=== PATIENT | female | born 1980 | race Hispanic/Latino ===

== ENCOUNTER 2018-09-17 06:28 | Day surgery (SDC) | payer BC ==
[2018-09-15 10:45] LABS: Urine Appearance CLEAR; Urine Bilirubin NEGATIVE (NEG); Urine Blood NEGATIVE (NEG); Urine Color YELLOW; Urine Glucose NEGATIVE (NEG); Urine Protein NEGATIVE (NEG); Urine Specific Gravity >=1.030 (1.005-1.030); Urine Urobilinogen 0.2 mg/dL (0.2-1.0); Urine pH 5.5 (5.0-7.0)
[2018-09-15 10:46] LABS: Absolute Lymphocytes (CBC) 1.9 K/uL (0.7-4.9); Absolute Monocytes 0.4 K/uL (0.1-1.3); Absolute Neutrophil 3.4 K/uL (1.8-8.0); Basophils % 0.5 % (0-1.3); Eosinophils % 6.7 % (0-4.4); Hematocrit 38.8 % (36.0-45.0); Lymphocytes % 31.6 % (15.3-44.8); MPV 8.7 fL (7.6-11.3); Monocytes % 5.7 % (3.3-12.3); RBC Red Blood Cell Count 4.32 M/uL (3.86-4.86)
[2018-09-15 10:52] LABS: Urine Microscopic Reflex NO UMIC
--- OUTSIDE RECORDS SUMMARY | 2018-09-17 06:33 | XMS REPORT ---
:1980 [facility] Address [address] [place] [address] Dr. Deluna [address] [place] [id number] Care Team Providers Name Role Phone Unavailable Unavailable Unavailable Problems This patient has no known problems. Allergies, Adverse Reactions, Alerts This patient has no known allergies or adverse reactions. Medications This patient has no known medications.
[2018-09-17] MEDS ORDERED: Ringers Lactate 1,000 ML IV ONE (07:03)
[2018-09-17] MEDS ORDERED: PROPOFOL 200 MG/20 ML VIAL IV ONE (07:12)
[2018-09-17] MEDS ORDERED: ROCURONIUM 50 MG/5 ML VIAL IV ONE (07:13)
[2018-09-17] MEDS ORDERED: GLYCOPYRROLATE 0.2 MG/ML SYR ONE (07:15)
[2018-09-17] MEDS ORDERED: LIDOCAINE 2% MPF 5 ML VIAL ONE (07:17)
[2018-09-17] MEDS ORDERED: DEXAMETHASONE 10 MG/ML VIAL ONE (07:17)
[2018-09-17] MEDS ORDERED: MIDAZOLAM HCL 2 MG/2 ML INJ ONE ×4 (07:18→07:43)
[2018-09-17] MEDS ORDERED: FENTANYL CITR 250 MCG/5 ML ONE (07:18)
[2018-09-17] MEDS ORDERED: ONDANSETRON 4 MG/2 ML VIAL ONE ×2 (07:21→08:47)
[2018-09-17] MEDS ORDERED: LIDOCAINE 1% MPF 2 ML AMPULE ONE (07:21)
[2018-09-17] MEDS ORDERED: NEOSTIGMINE 1 MG/ML -10 ML VIAL ONE (07:21)
[2018-09-17] MEDS: Ringers Lactate 1,000 ML IV ONE ×2 (08:05→08:10)
[2018-09-17] MEDS ORDERED: VASOPRESSIN 20 UNIT/ML VIAL ONE (08:44)
[2018-09-17] MEDS ORDERED: NS 0.9% VIAL 20 ML ONE (08:44)
[2018-09-17] MEDS ORDERED: KETOROLAC 30 MG/ML INJ ONE (09:31)
[2018-09-17] MEDS ORDERED: IBUPROFEN 200 MG TAB PO ONE (10:53)
[2018-09-17 13:52] VITALS: BP 106/59; TEMP 97.3; O2SAT 100
--- NOTE | 2018-09-17 17:22 | OP ---
Date of Procedure: 09/17/2018 Surgeon: Hannah Alicea MD Stock Replenisher: Carlota Eng. Preoperative Diagnoses: Desires sterilization, endometriosis, irregular periods, history of menorrha milagros. Postoperative Diagnoses: Desires sterilization, endometriosis, irregular periods, history of menorrh agia, and leiomyomata. Procedures Performed: 1.Diagnostic laparoscopy, endometriosis excision. 2.Bilateral salpingectomy. 3.Myomectomy x3 with repair of the myometrium. Anesthesia: General endotracheal. Estimated Blood Loss: 50. Specimens: Left uterosacral ligament endometriosis, left posterior broad ligament endometriosis, violet ateral tubes and leiomyomata x3. Complications: None. Drains: None. Condition: Stable. Findings: Two intramural fibroid with subserosal extension in the left anterior wall of the uterus, 1 subserosal fibroid with an indentation into the myometrium. Given the patient's history of heavy p eriods, plan was made to remove them. Endometriosis removed in the past. All the areas of excision appeared to be unremarkable excepting a t the distal left uterosacral where there was endometriotic tissue suspected and in the left posterio r broad ligament closer to the ovary. These 2 areas were excised with a monopolar tip, bilateral marcia pingectomy with an EnSeal device. Indications For Procedure: The patient is a 38-year-old with previous mental health problems includi ng bipolar disorder with episodes of psychosis and major depression, currently in remission. However , the patient has contemplated over her future fertility and desired complete sterilization, so we di scussed a bilateral salpingectomy, and she was consented. She also has history of menorrhagia. She is on oral contraceptive pills. Given her age and the risk, and the liver toxicity that can come fro m her medications for her mental health as well as the added oral contraceptives, it was decided that she should come off the contraceptives. History of menorrhagia prior to the use and so if there wer e any other problems that were detected that could be contributing to this, I consented the patient f or treatment of this. Procedure In Detail: After informed consent was verified, the patient was taken back to OR, placed i n a supine fashion on the operating table. After general anesthesia was given, she was placed in benita marcia lithotomy position. No antibiotics were given for this case. Pelvic exam was performed. Uterus was found to be anteflexed about 6 weeks in size. No adnexal masses. Slight nodularity in the left uterosacral ligament. Abdomen, vulva, vagina, and perineum were prepped and draped in a sterile fashion. Koch was placed to drain the bladder. Diagnostic VCare introduced into the uterine cavity. This area was then drape d. A 1 cm infraumbilical incision was made with a scalpel. Using the open laparoscopy technique, fascia was incised, tagged with 0 Vicryl sutures. Peritoneum entered bluntly, S retractors placed, and Has son introduced. Site of entry was checked and was unremarkable. Two 5 mm ports were placed in the s uprapubic and left lower quadrant under direct vision without any problems. Then, after visualizing the entire anterior and posterior pelvic, peritoneum, broad ligaments, the ovaries, tubes endometrios is was found in 2 locations as discussed above, the left distal uterosacral and the left lateral post erior broad ligament. The plan was to excise these with the monopolar Storz needle. This was taken. Dissection was performed circumferentially to remove the entire scar as well as the satellite endom etriotic lesions. Once both of these were dissected and removed, they were handed off for permanent pathology. Bilateral salpingectomy was performed with the EnSeal device and both of the tubes were removed throu gh the suprapubic trocar. A 20 units of vasopressin was diluted in 20 cc of normal saline. About 8 cc was injected at the loca tion of each fibroid at the base. Once the right plane was reached with a 22-gauge long spinal needl e, this was injected. There was appropriate blanching. Then, the monopolar Storz needle was used to make an incision over the serosa. Once the myoma was reached, the myoma was grasped with the tip of Lara and monopolar was used to excise it from its base. All 3 incisions were made through the my ometrium and the myomata removed. Then the bases were repaired with the help of 2-0 Monocryl on an S H needle in a buried [id number] fashion in all 3 locations. Intracorporeal knots were placed on the 2, and the other 1 of the extracorporeal knot-tying. Thorough irrigation and suction were perfo rmed. Excellent hemostasis. All the specimens were placed in the specimen bag introduced through th e umbilical trocar, removed. Thorough irrigation and suction were performed Interceed was trimmed an d placed over the areas that were sutured. All the trocars were removed under direct vision. Gas wa s desufflated Lauryn removed. Fascia at the umbilicus was closed with the tag sutures being tied tog ether and a single 0 Vicryl subcutaneous suture and 4-0 Vicryl interrupted were used for the closure of the skin incisions. Koch and VCare were removed. Instrument, needle, and sponge counts at the e nd of the case x2 were correct. EBL 50 mL. No complications. The patient was recovered from anesth esia in the OR and taken to PACU in stable condition. She will follow up with me in 1 week. JESSICA/WILI Voice ID: [id number] Report ID: [id number]
== END 2018-09-17 11:50 | disposition home or self-care (01) ==
LOC: OR 06:28
PROVIDERS: ATTEND Obstetrics & Gynecology
PROC: 0UB44ZZ Excision of Uterine Supporting Structure, Percutaneous Endoscopic Approach (ICD-10-PCS; 2018-09-17)
PROC: 0UB74ZZ Excision of Bilateral Fallopian Tubes, Percutaneous Endoscopic Approach (ICD-10-PCS; 2018-09-17)
PROC: 0UT74ZZ Resection of Bilateral Fallopian Tubes, Percutaneous Endoscopic Approach (ICD-10-PCS; principal; 2018-09-17 07:30)
DX: Z30.2 Encounter for sterilization (principal); N80.3 Endometriosis of pelvic peritoneum; N80.2 Endometriosis of fallopian tube; D25.1 Intramural leiomyoma of uterus; D25.2 Subserosal leiomyoma of uterus; F31.70 Bipolar disorder, currently in remission, most recent episode unspecified; F33.40 Major depressive disorder, recurrent, in remission, unspecified; Z79.899 Other long term (current) drug therapy
CPT/HCPCS: 36415; 81003; 81025; 85025; 86850; 86900; 86901; 88302; 88305; J1100; J2001; J2250; J2405; J2704; J2710; J3010

== ENCOUNTER → 2023-06-28 | Emergency (ER) | payer OTHER, SELFPAY ==
[~2023-06-28] MED LIST: NA CHLORIDE 0.9% 1,000 ML ONE
[2023-06-28 13:34] LABS: Specific Gravity 1.027 (1.005-1.030); Transitional Epithelial <5 /HPF (None Seen); Urine Bacteria None Seen /HPF (<20); Urine Bilirubin NEGATIVE (Negative); Urine Blood Negative (Negative); Urine Clarity Extremely Turbid (Clear); Urine Color Yellow (Yellow); Urine Glucose NEGATIVE (Negative); Urine Mucus 4+ /HPF (None Seen); Urine Protein 1+ (Negative); Urine RBC <5 /HPF (None Seen); Urine Urobilinogen Normal (Normal); Urine pH 5.5 (5.0-7.0)
[2023-06-28 13:39] LABS: Barbiturates NEGATIVE (NEGATIVE); Benzodiazepines NEGATIVE (NEGATIVE); Cocaine NEGATIVE (NEGATIVE); METHAMPHETAM NEGATIVE (NEGATIVE); Methadone NEGATIVE (NEGATIVE); Opiates NEGATIVE (NEGATIVE); Phencyclidine NEGATIVE (NEGATIVE); THC Cannibis NEGATIVE (NEGATIVE)
[2023-06-28 13:40] LABS: Absolute Lymphocytes (CBC) 1.2 K/uL (0.7-4.9); Hematocrit 44.7 % (36.0-45.0); Lymphocytes % 16.9 % (15.3-44.8); MCV 89.2 fL (80-100); MPV 7.9 fL (7.6-11.3); Platelets 248 thou/uL (152-406); RBC Red Blood Cell Count 5.02 M/uL (3.86-4.86)
[2023-06-28 13:44] LABS: Protime INR 1.34
[2023-06-28 14:02] LABS: ALT/SGPT 26 U/L (13-56); AST/SGOT 10 U/L (15-37); Albumin 4.3 g/dL (3.4-5.0); Alkaline Phosphatase 59 U/L (45-117); BUN Blood Urea Nitrogen 15 mg/dL (7-18); Bicarbonate 23 mEq/L (21-32); Bilirubin Direct 0.1 mg/dL (0-0.2); Bilirubin Indirect, Calculated 0.4 mg/dL (0.2-0.8); Bilirubin Total 0.5 mg/dL (0.2-1.0); Glomerular Filtration Rate 79 ml/min (=/>90); Glucose Level 93 mg/dL (74-106); Potassium 3.9 mEq/L (3.5-5.1); Protein, Total 8.4 g/dL (6.4-8.2); Sodium Level 136 mEq/L (136-145)
--- NOTE | 2023-06-28 15:00 | EKG ---
Test Date: 2023-06-28 Test Time: 13:48:06 Application Release Manager: NOLAN MEASUREMENT RESULTS: Intervals: Rate: 77 NH: 136 QRSD: 70 QT: 386 QTc: 436 [place]: P: 68 NH: 136 QRS: 73 T: 63 INTERPRETIVE STATEMENTS: Normal sinus rhythm normal ECG Electronically Signed On 06-28-23 14:59:10 ANIMAL STICKER by Ismael Nesbitt
--- NOTE | 2023-06-28 16:08 | ER ---
Nurse's Notes [facility] Name: Verenice Brito Age: 43 yrs Sex: Female : 1980 Arrival Date: 06/28/2023 Time: 12:30 Bed 19 Private MD: Diagnosis: Adjustment disorder with mixed anxiety and depressed mood;Major depressive disorder, recurrent, moderate;Suicidal ideations Presentation: 06/28 12:49 Chief complaint: Patient states: "my HOP WORKER told me to come in if I'm having suicidal iw thoughts, I don't like to think about them but they come in" my thought are of being or killing myself , no specific plan, had a change in her meds in the past 3 months, took me off Zoloft in Mar and just got back on it on the , they took me off Klonopin in October and I've had bipolar issues, has been to [facility] in the past or [facility]. Coronavirus screen: At this time, the client does not indicate any symptoms associated with coronavirus-19. Ebola Screen: Patient negative for fever greater than or equal to 101.5 degrees Fahrenheit, and additional compatible Ebola Virus Disease symptoms Patient denies exposure to infectious person. Patient denies travel to an Ebola-affected area in the 21 days before illness onset. No symptoms or risks identified at this time. Initial Sepsis Screen: Does the patient meet any 2 criteria? No. Patient's initial sepsis screen is negative. Does the patient have a suspected source of infection? No. Patient's initial sepsis screen is negative. Risk Assessment: Do you want to hurt yourself or someone else? Patient reports desire/thoughts of hurting themselves or someone else. Provider notified. Onset of symptoms. Onset of symptoms was June 26, 2023. 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 06/17/2023, unknown me1 Historical: - Allergies: 12:53 No Known Allergies; iw - Home Meds: 12:53 sertraline 25 mg oral tablet daily [Active]; gabapentin 300 mg oral capsule 3 times per iw day [Active]; oxcarbazepine 600 mg oral tablet 2 times per day [Active]; hydroxyzine HCl 25 mg Oral tablet 3 times per day [Active]; ziprasidone HCl 20 mg oral capsule every evening [Active]; zolpidem 10 mg Oral tablet every day at bedtime [Active]; - PMHx: 12:53 Bipolar disorder; Depressive disorder; iw - PSHx: 12:53 endometriosis removal; salpingectomy; iw - Immunization history:: Adult Immunizations not up to date. - Social history:: Smoking status: Patient denies any tobacco usage or history of. Patient uses THC gummies, with RX, Patient/guardian denies using alcohol. Screenin:59 [facility] ED Fall Risk Assessment (Adult) History of falling in the last 3 months, me1 including since admission No falls in past 3 months (0 pts) Confusion or Disorientation No (0 pts) Intoxicated or Sedated No (0 pts) Impaired Gait No (0 pts) Mobility Assist Device Used No (0 pt) Altered Elimination No (0 pt) Score/Fall Risk Level 0 - 2 = Low Risk Maintained a safe environment, Provided non-skid footwear, Hourly rounding (assess needs \\T\\ fall precautionary measures) done. Abuse screen: Denies threats or abuse. Nutritional screening: No deficits noted. Tuberculosis screening: No symptoms or risk factors identified. Assessment: 14:59 General: Appears well groomed, well developed, well nourished, Behavior is cooperative, me1 appropriate for age, flat, quiet, Reports "my HOP WORKER told me to come in if I'm having suicidal thoughts, I don't like to think about them but they come in" my thought are of being or killing myself , no specific plan, had a change in her meds in the past 3 months, took me off Zoloft in Mar and just got back on it on the , they took me off Klonopin in October and I've had bipolar issues, has been to [facility] in the past or [facility]. Denies intent. denies having a plan or intent to kill herself. Patient informed me that "before her depression got so bad this time she gave her gun back to her ex- in anticipation of her depression getting worse.". Pain: Denies pain. Neuro: Level of Consciousness is awake, alert, obeys commands, Oriented to person, place, time, situation, Appropriate for age. Cardiovascular: Capillary refill < 3 seconds Patient's skin is warm and dry. Respiratory: Airway is patent Trachea midline Respiratory effort is even, unlabored, Respiratory pattern is regular, symmetrical. Psych: 15:14 [place] Suicide Severity Screening: In the past month, have you wished you were me1 or wished you could go to sleep and not wake up? Patient responds "yes." Based off the client's responses additional C-SSRS screening is required. "In the past month, have you actually had any thoughts of killing yourself?" Patient responds "no." patient refuses having a plan or intent to kill herself. Patient informed me that "before her depression got so bad this time she gave her gun back to her ex- in anticipation of her depression getting worse." "In your lifetime, have you ever done anything, started to do anything, or prepared to do anything to end your life?" Patient responds "no.". Subjective: Patient's mood is sad, hopeless, Delusions are denied, Hallucinations are denied Having thoughts of suicide. Denies suicidal plan. patient refuses having a plan or intent to kill herself. Patient informed me that "before her depression got so bad this time she gave her gun back to her ex- in anticipation of her depression getting worse.". Objective: Patient is cooperative, Speech is slow, soft, Affect is flat. Interventions: Removed personal items and placed in bag. Patient placed in hospital gown. Searched person for dangerous items. Urine collected and sent for urine drug test. Belonging list filled out. Safety Checks: Personal items have been removed. Door is open. Visitors are present. Pt denies substance abuse. Commitment: Patient will be a voluntary commitment. Vital Signs: 12:49 BP 113 / 79; Pulse 91; Resp 16; Temp 98.8; Pulse Ox 100% on R/A; Weight 65.77 kg; iw Height 5 ft. 3 in. ; Pain 0/10; 12:49 Body Mass Index 25.69 (65.77 kg, 160.02 cm) iw 12:49 Pain Scale: Adult ED Course: 12:34 Patient arrived in ED. mg5 12:37 Jay Yun MD is Attending Physician. franklyn 12:53 Triage completed. iw 12:57 Arm band placed on. iw 13:10 Urine Drug Screen Sent. iw 13:10 Urinalysis w/ reflexes Sent. 13:24 Lesly Romo, RN is Primary Nurse. me1 14:59 Patient has correct armband on for positive identification. Bed in low position. Call me1 light in reach. Side rails up X2. Provided Education on: POC. Verbalized understanding.. 14:59 No provider procedures requiring assistance completed. Inserted saline lock: 20 gauge me1 in right wrist, using aseptic technique. 18:03 IV discontinued, intact, bleeding controlled, No redness/swelling at site. Pressure me1 dressing applied. 18:30 1620 FAXED info per [employer] list. 1632 Feliz Thomson RN called to do nurse to nurse. 1640 sp Kaya Kelly MD accepted patient 1640 [facility] admin approval. [facility] not available for transport called [facility] for transfer. Administered Medications: 13:55 Drug: NS 0.9% IV 1000 ml IV at 1 bolus Per protocol; 1000 mL bolus Route: IV; Rate: 1 me1 bolus; Site: right wrist; 14:47 Follow up: IV Status: Completed infusion me1 Medication: 14:59 VIS not applicable for this client. me1 Outcome: 16:07 ER care complete, transfer ordered by . [facility] 16:43 Transferred by ground EMS Transfer form completed. Note: community integration specialist. Nurse to nurse me1 completed to NOHEMY Piper. Transferred call to community integration specialist for acceptance information. 16:43 Condition: stable 16:43 Instructed on the need for transfer, 18:06 Patient left the ED. me1 Signatures: Jay Yun MD MD cha Pinkerton, Shawna sp Williams, Irene, RN RN Lesly Romo, NOHEMY RN me1 Tita Cook mg5 Corrections: (The following items were deleted from the chart) 14:59 12:49 Chief complaint: Patient states: "my HOP WORKER told me to come in if I'm having suicidal me1 thoughts, I don't like to think about them but they come in" my thought are of being or killing myself , no specific plan, had a change in her meds in the past 3 months, took me off Zoloft in Mar and just got back on it on the , they took me off Klonopin in October and I've had bipolar issues, has been to [facility] in the past or [facility] iw 15:21 14:59 General: Appears well groomed, well developed, well nourished, Behavior is me1 cooperative, appropriate for age, flat, quiet, Reports "my HOP WORKER told me to come in if I'm having suicidal thoughts, I don't like to think about them but they come in" my thought are of being or killing myself , no specific plan, had a change in her meds in the past 3 months, took me off Zoloft in Mar and just got back on it on the , they took me off Klonopin in October and I've had bipolar issues, has been to [facility] the past or [facility]. me1
--- NOTE | 2023-06-28 16:08 | EDPHYS ---
Physician Documentation [facility] Name: Verenice Brito Age: 43 yrs Sex: Female : 1980 Arrival Date: 06/28/2023 Time: 12:30 Bed 19 Private MD: ED Physician Jay Yun HPI: 06/28 16:01 This 43 yrs old Female presents to ER via Ambulatory with complaints of franklyn Suicidal Ideation. 16:01 The patient presents to the emergency department with anxiety, depression. Onset: The franklyn symptoms/episode began/occurred 5 day(s) ago. Past psychiatric history: Prior diagnosis: depression. Associated signs and symptoms: Pertinent positives; anxiety, depression, suicide ideation. 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 - Social history:: Smoking status: Patient denies any tobacco usage or history of. Patient uses THC gummies, with RX, Patient/guardian denies using alcohol. ROS: 16:02 Constitutional: Negative for fever, chills, and weight loss, Eyes: Negative for injury, franklyn pain, redness, and discharge, ENT: Negative for injury, pain, and discharge, Neck: Negative for injury, pain, and swelling, Cardiovascular: Negative for chest pain, palpitations, and edema, Respiratory: Negative for shortness of breath, cough, wheezing, and pleuritic chest pain, Abdomen/GI: Negative for abdominal pain, nausea, vomiting, diarrhea, and constipation, Back: Negative for injury and pain, : Negative for injury, bleeding, discharge, and swelling, MS/Extremity: Negative for injury and deformity, Skin: Negative for injury, rash, and discoloration, Neuro: Negative for headache, weakness, numbness, tingling, and seizure, Allergy/Immunology: Negative for hives, rash, and allergies, Endocrine: Negative for neck swelling, polydipsia, polyuria, polyphagia, and marked weight changes, Hematologic/Lymphatic: Negative for swollen nodes, abnormal bleeding, and unusual bruising, 16:02 Psych: Positive for anxiety, depression, suicidal ideation, Exam: 16:02 Constitutional: This is a well developed, well nourished patient who is awake, alert, franklyn and in no acute distress. Head/Face: Normocephalic, atraumatic. Eyes: Pupils equal round and reactive to light, extra-ocular motions intact. Lids and lashes normal. Conjunctiva and sclera are non-icteric and not injected. Cornea within normal limits. Periorbital areas with no swelling, redness, or edema. ENT: Nares patent. No nasal discharge, no septal abnormalities noted. Tympanic membranes are normal and external auditory canals are clear. Oropharynx with no redness, swelling, or masses, exudates, or evidence of obstruction, uvula midline. Mucous membranes moist. Neck: Trachea midline, no thyromegaly or masses palpated, and no cervical lymphadenopathy. Supple, full range of motion without nuchal rigidity, or vertebral point tenderness. No Meningismus. Chest/axilla: Normal chest wall appearance and motion. Nontender with no deformity. No lesions are appreciated. Cardiovascular: Regular rate and rhythm with a normal S1 and S2. No gallops, murmurs, or rubs. Normal PMI, no JVD. No pulse deficits. Respiratory: Lungs have equal breath sounds bilaterally, clear to auscultation and percussion. No rales, rhonchi or wheezes noted. No increased work of breathing, no retractions or nasal flaring. Abdomen/GI: Soft, non-tender, with normal bowel sounds. No distension or tympany. No guarding or rebound. No evidence of tenderness throughout. Back: No spinal tenderness. No costovertebral tenderness. Full range of motion. Skin: Warm, dry with normal turgor. Normal color with no rashes, no lesions, and no evidence of cellulitis. MS/ Extremity: Pulses equal, no cyanosis. Neurovascular intact. Full, normal range of motion. Neuro: Awake and alert, GCS 15, oriented to person, place, time, and situation. Cranial nerves II-XII grossly intact. Motor strength 5/5 in all extremities. Sensory grossly intact. Cerebellar exam normal. Normal gait. 16:02 ECG was reviewed by the Attending Physician. Vital Signs: 12:49 BP 113 / 79; Pulse 91; Resp 16; Temp 98.8; Pulse Ox 100% on R/A; Weight 65.77 kg; iw Height 5 ft. 3 in. ; Pain 0/10; 12:49 Body Mass Index 25.69 (65.77 kg, 160.02 cm) iw 12:49 Pain Scale: Adult iw MDM: 13:13 Patient medically screened. [facility] 16:03 Differential diagnosis: drug withdrawal. acute psychotic break, depression, psychosis franklyn secondary to non-compliance. Data reviewed: vital signs, nurses notes, lab test result(s), EKG. Consideration of Admission/Observation Escalation of care including admission/observation considered. I considered the following discharge prescriptions or medication management in the emergency department Medications were administered in the Emergency Department. See MAR. Independent interpretation of the following test(s) in the Emergency Department EKG: See my EKG interpretation above. Test considered but Not performed: CT: no ct head needed. Historians other than the Patient: Spouse/Significant Other: sig other , well informed. Care significantly affected by the following chronic conditions: bipolar , depression. Counseling: I had a detailed discussion with the patient and/or guardian regarding the historical points, exam findings, and any diagnostic results supporting the discharge/admit diagnosis, lab results, radiology results, the need to transfer to another facility, for higher level of care, [facility] does not immediately have the required specialist. 06/28 12:37 Order name: Acetaminophen; Complete Time: 14:24 franklyn 06/28 12:37 Order name: Basic Metabolic Panel; Complete Time: 14:24 [facility] 06/28 12:37 Order name: CBC with Diff; Complete Time: 14:24 06/28 12:37 Order name: ETOH Level; Complete Time: 14:24 06/28 12:37 Order name: Hepatic Function; Complete Time: 14:24 06/28 12:37 Order name: PT-INR; Complete Time: 14:24 06/28 12:37 Order name: Test, Urine; Complete Time: 14:24 [facility] 06/28 12:37 Order name: Ptt, Activated; Complete Time: 14:24 [facility] 06/28 12:37 Order name: Salicylate; Complete Time: 14:24 [facility] 06/28 12:37 Order name: Urinalysis w/ reflexes; Complete Time: 14:24 [facility] 06/28 12:37 Order name: Urine Drug Screen; Complete Time: 14:24 [facility] 06/28 14:24 Order name: Troponin High Sensitivity; Complete Time: 16:07 [facility] 06/28 12:37 Order name: EKG; Complete Time: 12:38 [facility] 06/28 14:24 Order name: EKG; Complete Time: 14:25 [facility] 06/28 12:37 Order name: EKG - Nurse/Tech; Complete Time: 13:55 [facility] 06/28 12:37 Order name: IV Saline Lock; Complete Time: 13:55 [facility] 06/28 12:37 Order name: Labs collected and sent; Complete Time: 13:55 [facility] 06/28 12:37 Order name: Suicide Screening ([place]) [facility] 06/28 14:24 Order name: EKG - Nurse/Tech; Complete Time: 14:47 [facility] EC:02 Rate is 777 beats/min. Rhythm is regular. QRS [place] is Normal. CO interval is normal. franklyn QRS interval is normal. QT interval is normal. No Q waves. T waves are Normal. No ST changes noted. Clinical impression: NSR w/ Non-specific ST/T Changes and No evidence of ischemia. Interpreted by me. Reviewed by me. Administered Medications: 13:55 Drug: NS 0.9% IV 1000 ml IV at 1 bolus Per protocol; 1000 mL bolus Route: IV; Rate: 1 me1 bolus; Site: right wrist; 14:47 Follow up: IV Status: Completed infusion [email or web address] Disposition Summary: 06/28/23 16:07 Transfer Ordered Notes: Transfer Location: Psych Facility [place]lyn Reason: Higher level of care franklyn Condition: Stable franklyn Problem: new franklyn Symptoms: have improved franklyn Accepting Physician: to dr hudson(06/28/23 18:06) me1 Diagnosis - Adjustment disorder with mixed anxiety and depressed mood franklyn - Major depressive disorder, recurrent, moderate franklyn - Suicidal ideations franklyn Forms: - Medication Reconciliation Form franklyn - SBAR form franklyn Signatures: Dispatcher [employer] Jay Quach MD MD franklyn Miguel, Ludmila, RN RN iw Lesly Romo RN RN me1 Corrections: (The following items were deleted from the chart) 18:06 16:[address] becca estes [email or web address]
[2023-06-28 18:34] VITALS: BP 113/79; TEMP 98.8; O2SAT 100
== END ==
LOC: ER 12:30
DX: F43.23 Adjustment disorder with mixed anxiety and depressed mood (principal); F33.1 Major depressive disorder, recurrent, moderate
CPT/HCPCS: 93005; 85025; 81001; 80048; 36415; 81025; 85610; 80076; 85730; 84484; 80307; 96360; 99285; 80143; 80179; 82077; J7030